=== PATIENT | female | born 1955 | race Caucasian/White ===

== ENCOUNTER 2017-02-12 16:38 | Emergency (ER) | payer SELFPAY ==
[~2017-02-12] VITALS: Ht 165.1 cm; Wt 110.0 kg
[~2017-02-12 16:38] MED LIST: CARBXR200 PO; CEPH500C3 PO; LEVE750T8 PO
[2017-02-12] MEDS ORDERED: SODIUM CHLORID 0.9% 500 ML INJ 500 ML IV ONE (16:45)
[2017-02-12] MEDS ORDERED: levETIRAcetam 1000 MG INJ 100 ML IV ONE (16:45)
[2017-02-12 16:46] VITALS: BP 203/97; PULSE 90; RESP 16; RESP 20; TEMP 98.7; O2SAT 100
[2017-02-12] MEDS ORDERED: CARB200T PO (16:49)
[2017-02-12] MEDS ORDERED: KEPP750T PO (16:49)
--- NOTE | 2017-02-12 16:59 | PD ---
HPI Chief Complaint: Seizure Time Seen by Provider: 16:51 Travel History International Travel<30 days: No Contact w/Intl Traveler<30days: No Traveled to known affect area: No History of Present Illness HPI Is a 61-year-old woman who presents to the emergency department with seizure. She has a history of seizure disorder. She states she gets a seizure every week or 2. She takes Tegretol and Keppra for her seizures. She was at a skilled nursing and they called the ambulance. Her first seizure was this morning when she apparently was lucid and able to refuse medical transport. Today she was too confused to refuse and so was brought to the emergency department. She still confused now. She denies any complaints. She has some evidence of trauma to the right side of her face. She denies any headache. States she's been taking her medications. History Past Medical History Narrative Medical Diabetes Hypertension Seizures Menopausal: Yes : 1 Para: 1 Social History Alcohol Use: Yes (SOCIAL) Tobacco Use: No Allergies-Medications (Allergen,Severity, Reaction): Coded Allergies: molasses (Unverified Allergy, Severe, 02/12/17) aspirin (Unverified Allergy, Unknown, 02/12/17) Reported Meds & Prescriptions Reported Meds & Active Scripts Active Reported Carbamazepine 200 Mg Tab 200 Mg PO BID Keppra (Levetiracetam) 750 Mg Tab 750 Mg PO BID Review of Systems Except as stated in HPI: all other systems reviewed are Neg Physical Exam Narrative GENERAL: Well-appearing 61-year-old woman, nontoxic, no acute distress. SKIN: Focused skin assessment warm/dry. HEAD: Atraumatic. Normocephalic. EYES: Pupils equal and round. No scleral icterus. No injection or drainage. ENT: No nasal bleeding or discharge. Mucous membranes pink and moist. She's got some swelling and contusion to her right brow. No other obvious facial deformity or tenderness. NECK: Trachea midline. No JVD. CARDIOVASCULAR: Regular rate and rhythm. No murmur appreciated. RESPIRATORY: No accessory muscle use. Clear to auscultation. Breath sounds equal bilaterally. GASTROINTESTINAL: Abdomen soft, non-tender, nondistended. Hepatic and splenic margins not palpable. MUSCULOSKELETAL: No obvious deformities. No edema. NEUROLOGICAL: Awake and alert, but overtly confused. No obvious cranial nerve deficits. Motor grossly within normal limits. Normal speech. Data Data Last Documented VS Vital Signs Date Time Temp Pulse Resp B/P (MAP) Pulse Ox O2 Delivery O2 Flow Rate FiO2 02/12/17 16:46 98.7 90 20 203/97 (132) 100 Room Air Orders Orders Complete Blood Count With Diff (02/12/17 16:45) Comprehensive Metabolic Panel (02/12/17 16:45) Carbamazepine (Tegretol) (02/12/17 16:45) Ct Brain W/O Iv Contrast(Rout) (02/12/17 ) Levetiracetam 1000 Mg Inj (Keppra 1000 M (02/12/17 16:45) Sodium Chlorid 0.9% 500 Ml Inj (Ns 500 M (02/12/17 16:45) Carbamazepine (Tegretol) (02/12/17 21:00) Levetiracetam (Keppra) (02/13/17 09:00) Labs Laboratory Tests Test 02/12/17 17:05 White Blood Count 5.1 TH/MM3 Red Blood Count 4.20 MIL/MM3 Hemoglobin 12.0 GM/DL Hematocrit 37.0 % Mean Corpuscular Volume 88.2 FL Mean Corpuscular Hemoglobin 28.5 PG Mean Corpuscular Hemoglobin Concent 32.3 % Red Cell Distribution Width 14.4 % Platelet Count 199 TH/MM3 Mean Platelet Volume 8.3 FL Neutrophils (%) (Auto) 65.4 % Lymphocytes (%) (Auto) 23.0 % Monocytes (%) (Auto) 9.2 % Eosinophils (%) (Auto) 1.8 % Basophils (%) (Auto) 0.6 % Neutrophils # (Auto) 3.3 TH/MM3 Lymphocytes # (Auto) 1.2 TH/MM3 Monocytes # (Auto) 0.5 TH/MM3 Eosinophils # (Auto) 0.1 TH/MM3 Basophils # (Auto) 0.0 TH/MM3 CBC Comment DIFF FINAL Differential Comment Blood Urea Nitrogen 23 MG/DL Creatinine 0.77 MG/DL Random Glucose 103 MG/DL Total Protein 7.4 GM/DL Albumin 3.3 GM/DL Calcium Level 8.2 MG/DL Alkaline Phosphatase 90 U/L Aspartate Amino Transf (AST/SGOT) 14 U/L Alanine Aminotransferase (ALT/SGPT) 21 U/L Total Bilirubin 0.1 MG/DL Sodium Level 141 MEQ/L Potassium Level 3.9 MEQ/L Chloride Level 109 MEQ/L Carbon Dioxide Level 27.9 MEQ/L Anion Gap 4 MEQ/L Estimat Glomerular Filtration Rate 76 ML/MIN Carbamazepine (Tegretol) Level 9.6 MCG/ML [facility] Medical Decision Making Medical Screen Exam Complete: Yes Emergency Medical Condition: Yes Interpretation(s) LABS: CBC is unremarkable. CMP is unremarkable. Tegretol levels 9.6 CT head: Left occiput lobe encephalomalacia. No acute infarct hemorrhage mass or edema. Soft tissue swelling in the right forehead. Status post left frontal parietal craniotomy. Differential Diagnosis Seizures, infection, lateral abnormality, head trauma, other Narrative Course Medical decision making 61-year-old woman, presents with seizure. She states history of seizures once or twice a week. She's been taking her medications. She otherwise feels fine. She is fairly significant trauma to her head. She is still confused. Diagnosis Primary Impression: Seizures Additional Instructions: Continue current medications. Follow-up with her primary doctor in the next 2-4 days. Return to the emergency department for any new or worsening symptoms. Med/Other Pt SpecificInfo: No Change to Meds Disposition: 01 DISCHARGE HOME Condition: Stable Spencer Boss MD Feb 12, 2017 16:59
[2017-02-12 17:28] LABS: AUTOMATED NEUTROPHIL # 3.3 TH/MM3 (1.8-7.7); BASOPHIL % 0.6 % (0.0-2.0); EOSINOPHIL # 0.1 TH/MM3 (0-0.4); EOSINOPHIL % 1.8 % (0.0-4.0); HEMO FLAGS DIFF FINAL; LYMPHOCYTE # 1.2 TH/MM3 (1.0-4.8); MEAN CELL VOLUME 88.2 FL (80.0-100.0); MEAN CORPUSCULAR HEMOGLOBIN 28.5 PG (27.0-34.0); MEAN CORPUSCULAR HGB CONC 32.3 % (32.0-36.0); MONO % 9.2 % (0.0-8.0); NEUT % 65.4 % (16.0-70.0); PLATELET COUNT 199 TH/MM3 (150-450); RED CELL DISTRIBUTION WIDTH 14.4 % (11.6-17.2); WHITE BLOOD COUNT 5.1 TH/MM3 (4.0-11.0)
--- NOTE | 2017-02-12 17:34 | RADRPT ---
EXAM DATE/TIME: 02/12/2017 17:19 [place] COMPARISON: No previous studies available for comparison. INDICATIONS : Seizure. RADIATION DOSE: 39.49 CTDIvol (mGy) MEDICAL HISTORY : Seizures. Hypertension. Diabetes. SURGICAL HISTORY : Tonsillectomy. Hysterectomy. ENCOUNTER: Initial ACUITY: 1 day PAIN SCALE: 0/10 LOCATION: cranial TECHNIQUE: Multiple contiguous axial images were obtained of the head. Using automated exposure control and adj ustment of the mA and/or kV according to patient size, radiation dose was kept as low as reasonably a chievable to obtain optimal diagnostic quality images. DICOM format image data is available electro nically for review and comparison. FINDINGS: CEREBRUM: The ventricles are normal for age. Encephalomalacia is identified in the left occipital lobe. No irais dence of midline shift, mass lesion, hemorrhage or acute infarction. No extra-axial fluid collection s are seen. POSTERIOR FOSSA: The cerebellum and brainstem are intact. The 4th ventricle is midline. The cerebellopontine angle i s unremarkable. EXTRACRANIAL: Mild soft tissue swelling is seen along the right side of the forehead. The visualized portion of the orbits is intact. SKULL: A left frontoparietal craniotomy defect is identified. The calvaria is otherwise intact. No evidence of skull fracture. CONCLUSION: 1. 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 2. No evidence of acute infarct, hemorrhage, mass or edema. 3. Soft tissue swelling right forehead 4. Status post left frontoparietal craniotomy. Khris Gruber MD on February 12, 2017 at 17:29 Board Certified Radiologist. This report was verified electronically.
[2017-02-12 17:49] LABS: ANION GAP 4 MEQ/L (5-15); AST (GOT) 14 U/L (15-37); BICARBONATE 27.9 MEQ/L (21.0-32.0); BLOOD UREA NITROGEN 23 MG/DL (7-18); CHLORIDE 109 MEQ/L (98-107); GLOMERULAR FILTRATION RATE 76 ML/MIN (>89); POTASSIUM 3.9 MEQ/L (3.5-5.1); SODIUM (NA) 141 MEQ/L (136-145)
[2017-02-12 17:51] LABS: ALKALINE PHOSPHATASE 90 U/L (45-117); ALT (GPT) 21 U/L (10-53); TOTAL BILIRUBIN ADULT 0.1 MG/DL (0.2-1.0)
[2017-02-12] MEDS: carBAMazepine 200 MG TAB PO SCH (23:47)
[2017-02-13] MEDS ORDERED: KEPP750T PO (08:16)
[2017-02-13] MEDS ORDERED: levETIRAcetam 250 MG TAB PO SCH (09:00)
[2017-02-13] MEDS: carBAMazepine 200 MG TAB PO SCH (09:00)
== END 2017-02-13 09:05 | disposition home or self-care (01) ==
LOC: NEPC 16:38
DX: G40.909 Epilepsy, unspecified, not intractable, without status epilepticus (principal)
CPT/HCPCS: 70450; 80053; 80156; 85025; 96361; 96365; 99285; J1953; J7040